=== PATIENT | female | born 1990 | race African-American/Black ===

== ENCOUNTER 2017-06-11 08:39 | Emergency (ER) | payer SELFPAY, OTHER ==
[2017-06-11 09:30] LABS: INFLUENZA A PATIENT NEGATIVE (NEGATIVE); INFLUENZA B PATIENT NEGATIVE (NEGATIVE); OBC FLU VALID
[2017-06-11] MEDS: ALBUTEROL SULFATE 2.5 MG/3 ML NEBU. NEB ×2 (09:49)
[2017-06-11 11:48] LABS: NEGATIVE OBC STREP NEG; POSITIVE OBC STREP POS
== END 2017-06-11 11:11 | disposition home or self-care (01) ==
LOC: ER 08:39
DX: R05 Cough (principal); J02.9 Acute pharyngitis, unspecified; J34.89 Other specified disorders of nose and nasal sinuses
CPT/HCPCS: 87070; 87804; 87804-59; 87880; 94640; 99284; J7613

== ENCOUNTER 2017-08-16 18:32 | Emergency (ER) | payer SELFPAY ==
[2017-08-16 19:42] LABS: NEG OBC UR NEG; POS OBC UR POS; U PREG PATIENT NEGATIVE (NEG)
[2017-08-18 14:23] LABS: CHLAMYDIA PROBE Negative (Negative); GC PROBE Negative (Negative)
== END 2017-08-16 21:40 | disposition home or self-care (01) ==
LOC: ER 21:40
DX: N76.0 Acute vaginitis (principal); B96.89 Other specified bacterial agents as the cause of diseases classified elsewhere; Z87.440 Personal history of urinary (tract) infections
CPT/HCPCS: 81025; 84703; 87491; 87591; 99284; Q0111

== ENCOUNTER 2018-01-22 21:13 | Emergency (ER) | payer SELFPAY ==
[~2018-01-22] VITALS: Ht 167.6 cm; Wt 91.2 kg
[~2018-01-22 21:13] MED LIST: ALBU2.5V5 NEB; CEPH500T PO; METR500T PO; METR500T8 PO; MUPI22OI2 TP; PRED50TA PO; TRAM50TA PO
[2018-01-22 21:55] LABS: BASO % 1 % (0-3); EOS # 0.1 x10^3/uL (0.0-0.7); EOS % 1 % (0-3); HEMATOCRIT 44.6 % (36.0-47.0); HEMOGLOBIN 15.2 g/dL (12.0-15.5); LYMPH # 2.5 x10^3/uL (1.0-4.8); LYMPH % 34 % (24-48); MEAN CORPUSCULAR HEMOGLOBIN 29 pg (25-35); MEAN CORPUSCULAR HGB CONC 34 g/dL (31-37); MEAN CORPUSCULAR VOLUME 85 fL (79-100); MONO # 0.5 x10^3/uL (0.0-1.1); MONO % 7 % (0-9); NEUT # 4.3 x10^3uL (1.8-7.7); NEUT % 58 % (31-73); PLATELET COUNT 249 x10^3/uL (140-400); RED BLOOD COUNT 5.26 x10^6/uL (3.50-5.40); RED CELL DISTRIBUTION WIDTH 14.5 % (11.5-14.5); WHITE BLOOD COUNT 7.3 x10^3/uL (4.0-11.0)
[2018-01-22] MEDS ORDERED: IV NORMAL SALINE 1000ML BAG 1,000 ML IV ONE (22:00)
[2018-01-22] MEDS ORDERED: MULTIVIT INFUSN,ADULT 4,VIT K 10 ML, THIAMINE INJ 100 MG, FOLIC ACID INJ 1 MG in IV NOR... IV ONE (22:15)
[2018-01-22 22:23] LABS: ALBUMIN 4.2 g/dL (3.4-5.0); ALBUMIN/GLOBULIN RATIO 1.2 (1.0-1.7); CALCIUM 9.8 mg/dL (8.5-10.1); CREATININE 0.9 mg/dL (0.6-1.0); GFR 89.6; MAGNESIUM 2.3 mg/dL (1.8-2.4); POTASSIUM 3.5 mmol/L (3.5-5.1); TOTAL BILIRUBIN 0.5 mg/dL (0.2-1.0); TOTAL PROTEIN 7.7 g/dL (6.4-8.2)
[2018-01-22 23:17] LABS: BILIRUBIN,URINE NEGATIVE (NEG); CLARITY,URINE CLEAR; COLOR,URINE YELLOW; NITRITE,URINE NEGATIVE (NEG); PROTEIN,URINE NEGATIVE (NEG-TRACE); UROBILINOGEN,URINE 0.2 mg/dL (0.2 mg/dL)
[2018-01-22 23:22] LABS: BARBITURATES NEG (NEG); BENZODIAZEPINES NEG (NEG); CANNABINOIDS NEG (NEG); COCAINE NEG (NEG); METHADONE NEG (NEG); OPIATES NEG (NEG); PHENCYCLIDINE NEG (NEG)
[2018-01-22 23:23] LABS: AMPHETAMINE/METHAMPHETAMINE NEG (NEG)
[2018-01-22 23:27] LABS: SQUAMOUS EPITHELIAL CELL,UR MOD /LPF
[2018-01-22 23:28] LABS: RBC,URINE 0 /HPF (0-2)
[2018-01-22 23:32] LABS: BACTERIA,URINE FEW /HPF (0-FEW)
--- NOTE | 2018-01-22 23:47 | RAD ---
CT scan of the head without contrast 01/22/2018 Clinical History: Fall with head injury. Technique: Unenhanced, contiguous, 5 mm axial sections were obtained through the head. One or more of the following individualized dose reduction techniques were utilized for this study: 1. Automated exposure control. 2. Adjustment of the mA and/or kV according to patient size. 3. Use of iterative reconstruction technique. Findings: Comparison study is dated 07/18/2009. The ventricles and sulci are within normal limits in size and configuration. No focal area of abnormal attenuation is seen involving the brain parenchyma. No extra-axial fluid collection is seen. No skull fracture is seen. Impression: Negative study. Electronically signed by: Santiago Dillard MD (01/22/2018 11:43 PM) [facility]
--- NOTE | 2018-01-23 01:04 | PHYS DOC ---
Past Medical History Past Medical History: Depression, Hypertension, UTI, Other Additional Past Medical Histor: ABCESS IN GUMS Past Surgical History: Other Additional Past Surgical Histo: GUM SX Alcohol Use: Occasionally Drug Use: None Adult General Chief Complaint Chief Complaint: SYNCOPE HPI HPI Patient is a 27 year old [f__sex] who presents with [] Review of Systems Review of Systems Constitutional: Denies fever or chills [] Eyes: Denies change in visual acuity, redness, or eye pain [] HENT: Denies nasal congestion or sore throat [] Respiratory: Denies cough or shortness of breath [] Cardiovascular: No additional information not addressed in HPI [] GI: Denies abdominal pain, nausea, vomiting, bloody stools or diarrhea [] : Denies dysuria or hematuria [] Musculoskeletal: Denies back pain or joint pain [] Integument: Denies rash or skin lesions [] Neurologic: Denies headache, focal weakness or sensory changes [] Endocrine: Denies polyuria or polydipsia [] All other systems were reviewed and found to be within normal limits, except as documented in this note. Current Medications Current Medications Current Medications Medications (Trade) Dose Ordered Sig/Joni Start Time Stop Time Status Last Admin Dose Admin Multivitamins 10 ml/Thiamine HCl 100 mg/Folic Acid 1 mg/Sodium Chloride 1,011.2 ml @ 1,000.088 mls/hr 1X ONCE 01/22/18 22:15 01/22/18 23:15 DC 01/22/18 22:33 1,000.088 MLS/HR Sodium Chloride 1,000 ml @ 1,000 mls/hr 1X ONCE 01/22/18 22:00 01/22/18 22:00 DC Allergies Allergies Allergies Coded Allergies Type Severity Reaction Last Updated Verified No Known Drug Allergies 08/06/13 No Physical Exam Physical Exam Constitutional: Well developed, well nourished, no acute distress, non-toxic appearance. [] HENT: Normocephalic, atraumatic, bilateral external ears normal, oropharynx moist, no oral exudates, nose normal. [] Eyes: PERRLA, EOMI, conjunctiva normal, no discharge. [] Neck: Normal range of motion, no tenderness, supple, no stridor. [] Cardiovascular:Heart rate regular rhythm, no murmur [] Lungs & Thorax: Bilateral breath sounds clear to auscultation [] Abdomen: Bowel sounds normal, soft, no tenderness, no masses, no pulsatile masses. [] Skin: Warm, dry, no erythema, no rash. [] Back: No tenderness, no CVA tenderness. [] Extremities: No tenderness, no cyanosis, no clubbing, ROM intact, no edema. [] Neurologic: Alert and oriented X 3, normal motor function, normal sensory function, no focal deficits noted. [] Psychologic: Affect normal, judgement normal, mood normal. [] Current Patient Data Vital Signs Vital Signs Date Time Temp Pulse Resp B/P (MAP) Pulse Ox O2 Delivery O2 Flow Rate FiO2 01/22/18 22:30 86 20 176/85 (115) 99 Room Air 01/22/18 21:15 97.9 97.9 Lab Values Laboratory Tests Test 01/22/18 21:25 01/22/18 23:00 01/22/18 23:08 White Blood Count 7.3 x10^3/uL (4.0-11.0) Red Blood Count 5.26 x10^6/uL (3.50-5.40) Hemoglobin 15.2 g/dL (12.0-15.5) Hematocrit 44.6 % (36.0-47.0) Mean Corpuscular Volume 85 fL (79-100) Mean Corpuscular Hemoglobin 29 pg (25-35) Mean Corpuscular Hemoglobin Concent 34 g/dL (31-37) Red Cell Distribution Width 14.5 % (11.5-14.5) Platelet Count 249 x10^3/uL (140-400) Neutrophils (%) (Auto) 58 % (31-73) Lymphocytes (%) (Auto) 34 % (24-48) Monocytes (%) (Auto) 7 % (0-9) Eosinophils (%) (Auto) 1 % (0-3) Basophils (%) (Auto) 1 % (0-3) Neutrophils # (Auto) 4.3 x10^3uL (1.8-7.7) Lymphocytes # (Auto) 2.5 x10^3/uL (1.0-4.8) Monocytes # (Auto) 0.5 x10^3/uL (0.0-1.1) Eosinophils # (Auto) 0.1 x10^3/uL (0.0-0.7) Basophils # (Auto) 0.0 x10^3/uL (0.0-0.2) Sodium Level 138 mmol/L (136-145) Potassium Level 3.5 mmol/L (3.5-5.1) Chloride Level 98 mmol/L (98-107) Carbon Dioxide Level 31 mmol/L (21-32) Anion Gap 9 (6-14) Blood Urea Nitrogen 18 mg/dL (7-20) Creatinine 0.9 mg/dL (0.6-1.0) Estimated GFR (Cockcroft-Gault) 89.6 BUN/Creatinine Ratio 20 (6-20) Glucose Level 114 mg/dL (70-99) H Calcium Level 9.8 mg/dL (8.5-10.1) Magnesium Level 2.3 mg/dL (1.8-2.4) Total Bilirubin 0.5 mg/dL (0.2-1.0) Aspartate Amino Transferase (AST) 33 U/L (15-37) Alanine Aminotransferase (ALT) 34 U/L (14-59) Alkaline Phosphatase 105 U/L (46-116) Creatine Kinase 604 U/L (26-192) H Troponin I Quantitative < 0.017 ng/mL (0.000-0.055) Total Protein 7.7 g/dL (6.4-8.2) Albumin 4.2 g/dL (3.4-5.0) Albumin/Globulin Ratio 1.2 (1.0-1.7) Ethyl Alcohol Level < 10 mg/dL (0-10) Urine Collection Type Unknown Urine Color Yellow Urine Clarity Clear Urine pH 7.0 Urine Specific [place] 1.020 Urine Protein Negative mg/dL (NEG-TRACE) Urine Glucose (UA) Negative mg/dL (NEG) Urine Ketones (Stick) Negative mg/dL (NEG) Urine Blood Negative (NEG) Urine Nitrite Negative (NEG) Urine Bilirubin Negative (NEG) Urine Urobilinogen Dipstick 0.2 mg/dL (0.2 mg/dL) Urine Leukocyte Esterase Trace (NEG) Urine RBC 0 /HPF (0-2) Urine WBC 1-4 /HPF (0-4) Urine Squamous Epithelial Cells Mod /LPF Urine Bacteria Few /HPF (0-FEW) Urine Mucus Mod /LPF Urine Opiates Screen Neg (NEG) Urine Methadone Screen Neg (NEG) Urine Barbiturates Neg (NEG) Urine Phencyclidine Screen Neg (NEG) Urine Amphetamine/Methamphetamine Neg (NEG) Urine Benzodiazepines Screen Neg (NEG) Urine Cocaine Screen Neg (NEG) Urine Cannabinoids Screen Neg (NEG) Urine Ethyl Alcohol Neg (NEG) POC Urine HCG, Qualitative Hcg negative (Negative) Laboratory Tests 01/22/18 21:25 Laboratory Tests 01/22/18 21:25 Microbiology 01/22/18 Wet Prep - Final, Complete EKG EKG @ 2128 NSR at 79bpm, nonspecific V4-V6, NO ST elevation Radiology/Procedures Radiology/Procedures PROCEDURE: CT HEAD WO CONTRAST CT scan of the head without contrast 01/22/2018 Clinical History: Fall with head injury. Technique: Unenhanced, contiguous, 5 mm axial sections were obtained through the head. One or more of the following individualized dose reduction techniques were utilized for this study: 1. Automated exposure control. 2. Adjustment of the mA and/or kV according to patient size. 3. Use of iterative reconstruction technique. Findings: Comparison study is dated 07/18/2009. The ventricles and sulci are within normal limits in size and configuration. No focal area of abnormal attenuation is seen involving the brain parenchyma. No extra-axial fluid collection is seen. No skull fracture is seen. Impression: Negative study. Electronically signed by: Santiago Dillard MD (01/22/2018 11:43 PM) [facility] CXR: 2 view (preliminary interpretation by ED physician): No acute process Course & Med Decision Making Course & Med Decision Making Pertinent Labs and Imaging studies reviewed. (See chart for details) [] Dragon Disclaimer Dragon Disclaimer This electronic medical record was generated, in whole or in part, using a voice recognition dictation system. Departure Departure Impression: Primary Impression: Syncope Additional Impression: Bacterial vaginosis Disposition: HOME, SELF-CARE Condition: IMPROVED Referrals: NO PCP (PCP) Patient Instructions: Bacterial Vaginosis, [id number], Syncope, [id number]-[id number] Scripts Metronidazole (FLAGYL) 500 Mg Tablet 500 MG PO BID for 7 Days, #14 TAB Prov: TYSON CROWELL DO 01/23/18 Problem Qualifiers Primary Impression: Syncope Syncope type: unspecified Qualified Codes: R55 - Syncope and collapse TYSON CROWELL DO Jan 23, 2018 01:04
[2018-01-23] MEDS ORDERED: METR500T PO (02:28)
[2018-01-23] MEDS ORDERED: metroNIDAZOLE 500 MG TABLET PO ONE (02:30)
[2018-01-23 03:00] VITALS: BP 163/107
--- NOTE | 2018-01-23 06:18 | EKG ---
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
--- NOTE | 2018-01-23 08:03 | RAD ---
Chest, 2 views, 01/22/2018: HISTORY: Cough The heart size is normal. No pulmonary infiltrate is seen. There is no evidence of pleural fluid. IMPRESSION: No acute cardiopulmonary abnormality is detected. Electronically signed by: Jay Colon MD (01/23/2018 8:00 AM) [facility]
== END 2018-01-23 03:08 | disposition home or self-care (01) ==
LOC: ER 21:13
DX: N76.0 Acute vaginitis (principal); B96.89 Other specified bacterial agents as the cause of diseases classified elsewhere; R55 Syncope and collapse; F32.9 Major depressive disorder, single episode, unspecified; I10 Essential (primary) hypertension; Z87.440 Personal history of urinary (tract) infections
CPT/HCPCS: 36415; 70450; 71046; 80053; 80307; 81001; 81025; 82550; 83735; 84484; 85025; 87086; 93005; 96365; 99285; G0480; J7030; Q0111; G0479

== ENCOUNTER 2018-04-16 19:22 | Emergency (ER) | payer BC ==
[~2018-04-16] VITALS: Ht 167.6 cm; Wt 98.4 kg
[~2018-04-16 19:22] MED LIST changes: +METR-84 PO; -METR500T8 PO
[2018-04-16 19:30] VITALS: BP 159/98
[2018-04-16 21:00] LABS: BILIRUBIN,URINE NEGATIVE (NEG); CLARITY,URINE CLEAR; COLOR,URINE YELLOW; NITRITE,URINE NEGATIVE (NEG); PROTEIN,URINE NEGATIVE (NEG-TRACE); UROBILINOGEN,URINE 0.2 mg/dL (0.2 mg/dL)
[2018-04-16 21:07] LABS: BACTERIA,URINE MANY /HPF (0-FEW); RBC,URINE OCC /HPF (0-2); SQUAMOUS EPITHELIAL CELL,UR MANY /LPF
[2018-04-16 21:08] LABS: BASO # 0.1 x10^3/uL (0.0-0.2); BASO % 1 % (0-3); EOS # 0.1 x10^3/uL (0.0-0.7); EOS % 1 % (0-3); HEMATOCRIT 44.1 % (36.0-47.0); HEMOGLOBIN 15.5 g/dL (12.0-15.5); LYMPH # 2.3 x10^3/uL (1.0-4.8); LYMPH % 33 % (24-48); MEAN CORPUSCULAR HEMOGLOBIN 30 pg (25-35); MEAN CORPUSCULAR HGB CONC 35 g/dL (31-37); MEAN CORPUSCULAR VOLUME 84 fL (79-100); MONO # 0.5 x10^3/uL (0.0-1.1); MONO % 7 % (0-9); NEUT # 4.1 x10^3uL (1.8-7.7); NEUT % 58 % (31-73); PLATELET COUNT 256 x10^3/uL (140-400); RED BLOOD COUNT 5.25 x10^6/uL (3.50-5.40); RED CELL DISTRIBUTION WIDTH 14.3 % (11.5-14.5)
[2018-04-16 21:16] LABS: CALCIUM 9.5 mg/dL (8.5-10.1); CREATININE 1.2 mg/dL (0.6-1.0); GFR 64.3; POTASSIUM 3.8 mmol/L (3.5-5.1)
--- NOTE | 2018-04-16 21:42 | RAD ---
CHEST PA LATERAL History: CHEST PAIN Comparison: January 22, 2018 Findings: 2 views of the chest are submitted. There is no infiltrate, pneumothorax, or effusion. The cardiac silhouette is within normal limits in size. The trachea is in the midline. No acute osseous abnormality is identified. Impression: 1. There is no evidence of acute cardiopulmonary disease. Electronically signed by: Junior Espinoza MD (04/16/2018 9:38 PM) [facility]
[2018-04-16] MEDS ORDERED: IV NORMAL SALINE 1000ML BAG 1,000 ML IV ONE (21:45)
--- NOTE | 2018-04-16 22:16 | PHYS DOC ---
Past Medical History Past Medical History: Depression, Hypertension, UTI, Other Additional Past Medical Histor: ABCESS IN GUMS Past Surgical History: Other Additional Past Surgical Histo: GUM SX Alcohol Use: Heavy Drug Use: None Adult General Chief Complaint Chief Complaint: HYPERTENSION HPI HPI Patient is a 27 year old female who presents with except [place]the airport and states that she is on lisinopril for hypertension but last 2 days she has taken her dose she is to take the 2-3 days before that she did not take her medication. Patient states that she's been feeling like she is hypertensive. Her blood pressure ED is 150/91. She also states that she's been dizzy, nauseated, blurred vision, midsternal chest pain and is feeling overall lightheaded today. Patient states she has ate 6 hours prior to arrival daily. She is alert and oriented. Ambulatory with steady gait. Review of Systems Review of Systems Constitutional: Denies fever or chills [] Eyes: Blurred vision today. Denies change in visual acuity, redness, or eye pain [] HENT: Denies nasal congestion or sore throat [] Respiratory: Denies cough or shortness of breath [] Cardiovascular: Mid chest pain GI: Denies abdominal pain, nausea, vomiting, bloody stools or diarrhea [] : Denies dysuria or hematuria [] Musculoskeletal: Denies back pain or joint pain [] Integument: Denies rash or skin lesions [] Neurologic: Dizziness, lightheadedness, headache, denies focal weakness or sensory changes [] All other systems were reviewed and found to be within normal limits, except as documented in this note. Current Medications Current Medications Current Medications Medications (Trade) Dose Ordered Sig/[facility] Start Time Stop Time Status Last Admin Dose Admin Sodium Chloride 1,000 ml @ 1,000 mls/hr 1X ONCE 04/16/18 21:45 04/16/18 22:44 04/16/18 21:45 1,000 MLS/HR Allergies Allergies Allergies Coded Allergies Type Severity Reaction Last Updated Verified No Known Drug Allergies 08/06/13 No Physical Exam Physical Exam Constitutional: Well developed, well nourished, no acute distress, non-toxic appearance. [] HENT: Normocephalic, atraumatic, bilateral external ears normal, oropharynx moist, no oral exudates, nose normal. [] Eyes: PERRLA, EOMI, conjunctiva normal, no discharge. [] Neck: Normal range of motion, no tenderness, supple, no stridor. [] Cardiovascular:Heart rate regular rhythm, no murmur [] Lungs & Thorax: Bilateral breath sounds clear to auscultation [] Abdomen: Bowel sounds normal, soft, no tenderness, no masses, no pulsatile masses. [] Skin: Warm, dry, no erythema, no rash. [] Back: No tenderness, no CVA tenderness. [] Extremities: No tenderness, no cyanosis, no clubbing, ROM intact, bilateral pedal edema 1-2+ nonpitting. [] Neurologic: Alert and oriented X 3, normal motor function, normal sensory function, no focal deficits noted. [] Psychologic: Affect normal, judgement normal, mood normal. [] Current Patient Data Vital Signs Vital Signs Date Time Temp Pulse Resp B/P (MAP) Pulse Ox O2 Delivery O2 Flow Rate FiO2 04/16/18 19:30 159/98 (118) 04/16/18 19:30 97.9 90 18 98 97.9 Lab Values Laboratory Tests Test 04/16/18 20:40 04/16/18 20:48 04/16/18 20:54 Urine Collection Type Unknown Urine Color Yellow Urine Clarity Clear Urine pH 6.0 Urine Specific [place] 1.020 Urine Protein Negative mg/dL (NEG-TRACE) Urine Glucose (UA) Negative mg/dL (NEG) Urine Ketones (Stick) Negative mg/dL (NEG) Urine Blood Negative (NEG) Urine Nitrite Negative (NEG) Urine Bilirubin Negative (NEG) Urine Urobilinogen Dipstick 0.2 mg/dL (0.2 mg/dL) Urine Leukocyte Esterase Small (NEG) Urine RBC Occ /HPF (0-2) Urine WBC 5-10 /HPF (0-4) Urine Squamous Epithelial Cells Many /LPF Urine Bacteria Many /HPF (0-FEW) Urine Mucus Mod /LPF White Blood Count 7.0 x10^3/uL (4.0-11.0) Red Blood Count 5.25 x10^6/uL (3.50-5.40) Hemoglobin 15.5 g/dL (12.0-15.5) Hematocrit 44.1 % (36.0-47.0) Mean Corpuscular Volume 84 fL (79-100) Mean Corpuscular Hemoglobin 30 pg (25-35) Mean Corpuscular Hemoglobin Concent 35 g/dL (31-37) Red Cell Distribution Width 14.3 % (11.5-14.5) Platelet Count 256 x10^3/uL (140-400) Neutrophils (%) (Auto) 58 % (31-73) Lymphocytes (%) (Auto) 33 % (24-48) Monocytes (%) (Auto) 7 % (0-9) Eosinophils (%) (Auto) 1 % (0-3) Basophils (%) (Auto) 1 % (0-3) Neutrophils # (Auto) 4.1 x10^3uL (1.8-7.7) Lymphocytes # (Auto) 2.3 x10^3/uL (1.0-4.8) Monocytes # (Auto) 0.5 x10^3/uL (0.0-1.1) Eosinophils # (Auto) 0.1 x10^3/uL (0.0-0.7) Basophils # (Auto) 0.1 x10^3/uL (0.0-0.2) Sodium Level 137 mmol/L (136-145) Potassium Level 3.8 mmol/L (3.5-5.1) Chloride Level 99 mmol/L (98-107) Carbon Dioxide Level 29 mmol/L (21-32) Anion Gap 9 (6-14) Blood Urea Nitrogen 22 mg/dL (7-20) H Creatinine 1.2 mg/dL (0.6-1.0) H Estimated GFR (Cockcroft-Gault) 64.3 Glucose Level 94 mg/dL (70-99) Calcium Level 9.5 mg/dL (8.5-10.1) POC Urine HCG, Qualitative Hcg negative (Negative) Laboratory Tests 04/16/18 20:48 Laboratory Tests 04/16/18 20:48 EKG EKG Sinus rhythm and no STEMI Interpretation Time: 2049 in read by Radiology/Procedures Radiology/Procedures Chest x-ray Impressions: [facility] [address] [place], [place] [id number] IMAGING REPORT Signed PATIENT: BECKY MORENO ACCOUNT: [id number] : 1990 LOCATION: ER AGE: 27 SEX: F EXAM STATUS: REG ER ORD. PHYSICIAN: BILL ORELLANA APRN REASON: chest pain PROCEDURE: CHEST PA & LATERAL CHEST PA LATERAL History: CHEST PAIN Comparison: January 22, 2018 Findings: 2 views of the chest are submitted. There is no infiltrate, pneumothorax, or effusion. The cardiac silhouette is within normal limits in size. The trachea is in the midline. No acute osseous abnormality is identified. Impression: 1. There is no evidence of acute cardiopulmonary disease. Electronically signed by: Junior George MD (04/16/2018 9:38 PM) [facility] DICTATED and SIGNED BY: JUNIOR GEORGE MD DATE: 04/16/182137 Course & Med Decision Making Course & Med Decision Making Patient is a 27 year old female who presents with except [place]the airport and states that she is on lisinopril for hypertension but last 2 days she has taken her dose she is to take the 2-3 days before that she did not take her medication. Patient states that she's been feeling like she is hypertensive. Her blood pressure ED is 150/91. She also states that she's been dizzy, nauseated, blurred vision, midsternal chest pain and is feeling overall lightheaded today. Patient states she has ate 6 hours prior to arrival daily. She is alert and oriented. Ambulatory with steady gait. Speaks in full clear sentences. Neurologically intact. PERRLA. Patient has no focal weaknesses. She does however have bilateral ankle and pedal edema 1-2+. The chest pain is nonpleuritic. PERC negative and Heart score is 1. Pulses are present. Abdomen is soft and nontender. Patient doesn't denies any vomiting or diarrhea or fever or shortness of air. Lungs are clear to auscultation. Chest x-ray shows no acute findings. Heart rate is regular without murmur. EKG shows sinus rhythm and no STEMI. Bilateral tympanic membranes are pearly white. Patient denies any recent illness or head congestion. Patient denies the room spinning or any dizziness this time but she does state that she feels slightly lightheaded. Patient did drive herself here today. Blood work is unremarkable. Blood glucose is within normal limits. Patient does state that before she began taking her lisinopril and her blood pressure was in the 170s over 100s and now it has dropped down to the 150s over 90s which is a change for her. We spoke about how a big change in blood pressure can cause some dizziness lightheadedness. I have told patient that she needs to continue taking her blood pressure medications and do not skip a dose. She is to call her doctor in the morning and be seen for follow-up. Patient is stable and in no distress. Dragon Disclaimer Dragon Disclaimer This electronic medical record was generated, in whole or in part, using a voice recognition dictation system. Departure Departure Impression: Primary Impression: Dizziness Additional Impressions: Chest pain Hypertension Disposition: HOME, SELF-CARE Condition: STABLE Referrals: NO PCP (PCP) Patient Instructions: Chest Pain (Nonspecific), Dizziness, Hypertension Additional Instructions: Cardiac doctor in the morning to make an appointment. Do not skip any doses of your blood pressure medication and take it as prescribed. If you pass out, chest pain increases with radiation to left arm, or dizziness worsens please come back to the ER. Problem Qualifiers Additional Impressions: Chest pain Chest pain type: unspecified Qualified Codes: R07.9 - Chest pain, unspecified Hypertension Hypertension type: unspecified Qualified Codes: I10 - Essential (primary) hypertension BILL ORELLANA CAGE CASHIER Apr 16, 2018 22:16
--- NOTE | 2018-04-17 07:56 | EKG ---
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
== END 2018-04-16 22:45 | disposition home or self-care (01) ==
LOC: ER 19:22
DX: R42 Dizziness and giddiness (principal); I10 Essential (primary) hypertension; R51 Headache; R11.0 Nausea; R07.89 Other chest pain; F32.9 Major depressive disorder, single episode, unspecified; F10.20 Alcohol dependence, uncomplicated; Y90.9 Presence of alcohol in blood, level not specified; H53.8 Other visual disturbances
CPT/HCPCS: 36415; 71046; 80048; 81001; 81025; 84484; 85025; 87086; 93005; 96360; 99284; J7030

== ENCOUNTER 2018-08-31 21:59 | Emergency (ER) | payer BC ==
[~2018-08-31] VITALS: Ht 167.6 cm; Wt 98.4 kg
[~2018-08-31 21:59] MED LIST changes: +METR-34 PO; -METR-84 PO
[2018-08-31 22:45] LABS: BASO # 0.1 x10^3/uL (0.0-0.2); BASO % 1 % (0-3); EOS # 0.1 x10^3/uL (0.0-0.7); EOS % 1 % (0-3); HEMATOCRIT 38.6 % (36.0-47.0); HEMOGLOBIN 13.4 g/dL (12.0-15.5); LYMPH # 2.2 x10^3/uL (1.0-4.8); LYMPH % 42 % (24-48); MEAN CORPUSCULAR HEMOGLOBIN 30 pg (25-35); MEAN CORPUSCULAR HGB CONC 35 g/dL (31-37); MEAN CORPUSCULAR VOLUME 86 fL (79-100); MONO # 0.3 x10^3/uL (0.0-1.1); MONO % 7 % (0-9); NEUT # 2.6 x10^3uL (1.8-7.7); NEUT % 49 % (31-73); PLATELET COUNT 234 x10^3/uL (140-400); RED BLOOD COUNT 4.52 x10^6/uL (3.50-5.40); RED CELL DISTRIBUTION WIDTH 13.5 % (11.5-14.5); WHITE BLOOD COUNT 5.3 x10^3/uL (4.0-11.0)
[2018-08-31 22:46] LABS: BILIRUBIN,URINE NEGATIVE (NEG); CLARITY,URINE CLOUDY; COLOR,URINE YELLOW; NITRITE,URINE NEGATIVE (NEG); PROTEIN,URINE NEGATIVE (NEG-TRACE); UROBILINOGEN,URINE 0.2 mg/dL (0.2 mg/dL)
[2018-08-31 22:51] LABS: RBC,URINE OCC /HPF (0-2)
[2018-08-31 22:52] LABS: BACTERIA,URINE MODERATE /HPF (0-FEW); SQUAMOUS EPITHELIAL CELL,UR MANY /LPF
[2018-08-31 22:56] LABS: CALCIUM 8.7 mg/dL (8.5-10.1); CREATININE 1.2 mg/dL (0.6-1.0); GFR 63.8; POTASSIUM 3.9 mmol/L (3.5-5.1)
--- NOTE | 2018-08-31 22:58 | PHYS DOC ---
Past Medical History Past Medical History: Depression, Hypertension, UTI, Other Additional Past Medical Histor: ABCESS IN GUMS (STU ROWELL APRN) Past Surgical History: Other Additional Past Surgical Histo: GUM SX (STU ROWELL APRN) Alcohol Use: Heavy Drug Use: None (STU ROWELL APRN) Smoking: Cigarettes (TYSON CROWELL DO) Adult General Chief Complaint Chief Complaint: HYPERTENSION HPI HPI 28-year-old female presents to ER for complaints of elevated blood pressure and left-sided chest pain. Patient states she has had chest pain since 5 AM this morning. Patient states she was able to work from 7:00 this morning until 6 PM and chest pain was intermittent throughout the day. She denies any shortness of air. She reports she does feel fatigued and has some dizziness denies headache, vision changes, or tinnitus. Patient states she is on lisinopril/HCTZ but she forgot to take her medications today. She reports her doctor had up her dose 2 weeks ago as her blood pressure remains elevated. Patient denies any family CAD hx. Pt is a daily smoker. (STU ROWELL APRN) Review of Systems Review of Systems Constitutional: Denies fever or chills. Reports generalized fatigue Eyes: Denies change in visual acuity, redness, or eye pain [] HENT: Denies nasal congestion or sore throat [] Respiratory: Denies cough or shortness of breath [] Cardiovascular: Reports lt side CP intermittently thru day- denies during exam GI: Denies abdominal pain, nausea, vomiting, bloody stools or diarrhea [] : Denies dysuria or hematuria [] Musculoskeletal: Denies back/neck pain or joint pain [] Integument: Denies rash or skin lesions [] Neurologic: Denies headache, focal weakness or sensory changes [] All other systems were reviewed and found to be within normal limits, except as documented in this note. (STU ROWELL APRN) Allergies Allergies Allergies Coded Allergies Type Severity Reaction Last Updated Verified No Known Drug Allergies 08/06/13 No (TYSON CROWELL DO) Physical Exam Physical Exam Constitutional: Well developed, well nourished, no acute distress, non-toxic appearance. [] HENT: Normocephalic, atraumatic, bilateral ears normal, mucous membranes pink/dry- bilat tonsillar swelling/erythema, no oral exudates, nose normal. [] Eyes: Pupils equal, conjunctiva normal, no discharge. [] Neck: Normal range of motion, no tenderness, supple, no stridor. [] Cardiovascular: Heart rate regular rhythm, no murmur [] Lungs & Thorax: Bilateral breath sounds clear to auscultation. Resp. equal/nonlabored Abdomen: Bowel sounds normal, soft, no tenderness, no masses, no pulsatile masses. [] Skin: Warm, dry, no erythema, no rash. [] Back: No tenderness, no CVA tenderness. [] Extremities: No tenderness, no cyanosis, no clubbing, ROM intact, no edema. [] Neurologic: Alert and oriented X 3, normal motor function, normal sensory function, no focal deficits noted. [] Psychologic: Affect normal, judgement normal, mood normal. [] (REFFITT,STU Zendejas APRN) Current Patient Data Vital Signs Vital Signs Date Time Temp Pulse Resp B/P (MAP) Pulse Ox O2 Delivery O2 Flow Rate FiO2 09/01/18 00:19 78 97 08/31/18 22:00 98.1 17 186/95 (125) Room Air 98.1 (CROWELL,TYSON R DO) Lab Values Laboratory Tests Test 08/31/18 22:10 08/31/18 22:35 08/31/18 22:40 Urine Collection Type Unknown Urine Color Yellow Urine Clarity Cloudy Urine pH 7.0 Urine Specific [place] 1.015 Urine Protein Negative mg/dL (NEG-TRACE) Urine Glucose (UA) Negative mg/dL (NEG) Urine Ketones (Stick) Negative mg/dL (NEG) Urine Blood Large (NEG) Urine Nitrite Negative (NEG) Urine Bilirubin Negative (NEG) Urine Urobilinogen Dipstick 0.2 mg/dL (0.2 mg/dL) Urine Leukocyte Esterase Moderate (NEG) Urine RBC Occ /HPF (0-2) Urine WBC 5-10 /HPF (0-4) Urine Squamous Epithelial Cells Many /LPF Urine Bacteria Moderate /HPF (0-FEW) Urine Mucus Mod /LPF White Blood Count 5.3 x10^3/uL (4.0-11.0) Red Blood Count 4.52 x10^6/uL (3.50-5.40) Hemoglobin 13.4 g/dL (12.0-15.5) Hematocrit 38.6 % (36.0-47.0) Mean Corpuscular Volume 86 fL (79-100) Mean Corpuscular Hemoglobin 30 pg (25-35) Mean Corpuscular Hemoglobin Concent 35 g/dL (31-37) Red Cell Distribution Width 13.5 % (11.5-14.5) Platelet Count 234 x10^3/uL (140-400) Neutrophils (%) (Auto) 49 % (31-73) Lymphocytes (%) (Auto) 42 % (24-48) Monocytes (%) (Auto) 7 % (0-9) Eosinophils (%) (Auto) 1 % (0-3) Basophils (%) (Auto) 1 % (0-3) Neutrophils # (Auto) 2.6 x10^3uL (1.8-7.7) Lymphocytes # (Auto) 2.2 x10^3/uL (1.0-4.8) Monocytes # (Auto) 0.3 x10^3/uL (0.0-1.1) Eosinophils # (Auto) 0.1 x10^3/uL (0.0-0.7) Basophils # (Auto) 0.1 x10^3/uL (0.0-0.2) Sodium Level 141 mmol/L (136-145) Potassium Level 3.9 mmol/L (3.5-5.1) Chloride Level 103 mmol/L (98-107) Carbon Dioxide Level 28 mmol/L (21-32) Anion Gap 10 (6-14) Blood Urea Nitrogen 16 mg/dL (7-20) Creatinine 1.2 mg/dL (0.6-1.0) H Estimated GFR (Cockcroft-Gault) 63.8 BUN/Creatinine Ratio 13 (6-20) Glucose Level 126 mg/dL (70-99) H Calcium Level 8.7 mg/dL (8.5-10.1) Magnesium Level 2.0 mg/dL (1.8-2.4) Total Bilirubin 0.3 mg/dL (0.2-1.0) Aspartate Amino Transferase (AST) 40 U/L (15-37) H Alanine Aminotransferase (ALT) 48 U/L (14-59) Alkaline Phosphatase 101 U/L (46-116) Troponin I Quantitative < 0.017 ng/mL (0.000-0.055) Total Protein 6.6 g/dL (6.4-8.2) Albumin 3.8 g/dL (3.4-5.0) Albumin/Globulin Ratio 1.4 (1.0-1.7) POC Urine HCG, Qualitative Hcg negative (Negative) Laboratory Tests 08/31/18 22:35 Laboratory Tests 08/31/18 22:35 Microbiology 08/31/18 Urine Culture - Final, Complete 08/31/18 Urine Culture Result 1 (ROSEMARY) - Final, Complete (TYSON CROWELL DO) EKG EKG EKG obtained 08/31/18 at [address] Crowell Sinus rhythm Rate 81 No STEMI (STU ROWELL APRN) Radiology/Procedures Radiology/Procedures PROCEDURE: CHEST PA & LATERAL CHEST PA LATERAL CLINICAL INDICATION: LEFT SIDED CHEST PAIN, DIZZINESS X1 DAY. HX OF HBP COMPARISON: 04/16/2018 FINDINGS: Heart is normal in size. Lungs are clear. No pneumothorax or pleural effusion. Visualized bony thorax is within normal limits. IMPRESSION: No acute pulmonary process. Electronically signed by: Genaro Fulton DO (09/01/2018 12:01 AM) [facility] DICTATED and SIGNED BY: GENARO FULTON DO DATE: 09/01/18 0001 (STU ROWELL APRN) Course & Med Decision Making Course & Med Decision Making Pertinent Labs and Imaging studies reviewed. (See chart for details) 2355: Patient was evaluated in the ER for complaints of elevated blood pressure and was feeling fatigued with intermittent dizziness. She reported she hadn't taken her blood pressure medication. Patient was given IV fluids and had labs, EKG, and chest x-ray obtained as pt reported CP since 0500- EKG with no acute ST elevation/STEMI and troponin was neg. Patient's UA with UTI- this was discussed with pt along with plans for Rx for Keflex. At this time is 177/84 heart rate 79. On reevaluation patient reports her symptoms have improved and she is comfortable with home discharge as her symptoms have improved. She remains alert and oriented 3. Discussion had with patient regarding medication compliance and not missing doses of her hypertension medicine. Education provided on s&s to return to ER for and discharge instructions were discussed. Pt to f/u with her PCP for re-eval of BP and recheck of UA after antibiotic completion. Pt was in no distress and remained nontoxic in appearance. (STU ROWELL APRN) Dragon Disclaimer Dragon Disclaimer This electronic medical record was generated, in whole or in part, using a voice recognition dictation system. (STU ROWELL APRN) Departure Departure Impression: Primary Impression: Chest pain Additional Impressions: Hypertension UTI (urinary tract infection) Disposition: HOME, SELF-CARE Condition: STABLE Referrals: ARNULFO DRAKE MD (PCP) Patient Instructions: Chest Pain (Nonspecific), Hypertension, Managing Your High Blood Pressure, Urinary Tract Infection Additional Instructions: Drink plenty of fluids. Take your blood pressure medications as prescribed daily- don't miss doses. Follow-up with your primary doctor for blood pressure re-evaluation. Scripts Cephalexin (KEFLEX) 500 Mg Capsule 1 CAP PO BID, #14 CAP 0 Refills Prov: STU ROWELL APRN 09/01/18 Attending Signature Attending Signature I have reviewed the PA/CANE PILER's note and plan of care. I was available for consult ation as needed during the patient's visit in the emergency department. I agree with the clinical impression, plan, and disposition. (TYSON CROWELL DO) PERC Rule for PE PERC Rule for PE Response (Comments) Value Age > 50: No 0 HR > 100: No 0 Sa02 on room air <95%: No 0 Unilateral leg swelling: No 0 Hemoptysis: No 0 Recent surgery or trauma: No 0 Prior PE or DVT: No 0 Hormone use: No 0 Total 0 The HEART Score for CP Pts HEART Score for Chest Pain: HEART Score for Chest Pain Response (Comments) Value History Slighlty/Non-Suspicious 0 ECG Normal 0 Age < 45 0 Risk Factors 1 or 2 Risk Factors 1 Troponin < Normal Limit 0 Total 1 Risk Factors: Risk Factors: DM, Current or recent (<one month) smoker, HTN, HLP, family hi story of CAD, obesity. Risk Scores: Score 0 - 3: 2.5% MACE over next 6 weeks - Discharge Home Score 4 - 6: 20.3% MACE over next 6 weeks - Admit for Clinical Observation Score 7 - 10: 72.7% MACE over next 6 weeks - Early Invasive Strategies (TYSON CROWELL DO) Problem Qualifiers STU ROWELL APRN Aug 31, 2018 22:58 TYSON CROWELL DO September 13, 2018 12:09
[2018-08-31 23:01] LABS: ALBUMIN 3.8 g/dL (3.4-5.0); ALBUMIN/GLOBULIN RATIO 1.4 (1.0-1.7); TOTAL BILIRUBIN 0.3 mg/dL (0.2-1.0); TOTAL PROTEIN 6.6 g/dL (6.4-8.2)
--- NOTE | 2018-09-01 00:04 | RAD ---
CHEST PA LATERAL CLINICAL INDICATION: LEFT SIDED CHEST PAIN, DIZZINESS X1 DAY. HX OF HBP COMPARISON: 04/16/2018 FINDINGS: Heart is normal in size. Lungs are clear. No pneumothorax or pleural effusion. Visualized bony thorax is within normal limits. IMPRESSION: No acute pulmonary process. Electronically signed by: Genaro Fulton DO (09/01/2018 12:01 AM) [facility]
[2018-09-01 00:19] VITALS: BP 171/87
[2018-09-01] MEDS ORDERED: CEPH-264 PO (00:20)
--- NOTE | 2018-09-01 07:35 | EKG ---
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 Electronically Signed On 09-04-2018 9:28:34 CDT by Joby Mccormick
== END 2018-09-01 00:49 | disposition home or self-care (01) ==
LOC: ER 21:59
DX: I10 Essential (primary) hypertension (principal); N39.0 Urinary tract infection, site not specified; R07.89 Other chest pain; R51 Headache; R42 Dizziness and giddiness; R53.83 Other fatigue; F32.9 Major depressive disorder, single episode, unspecified; F10.20 Alcohol dependence, uncomplicated; Y90.9 Presence of alcohol in blood, level not specified
CPT/HCPCS: 36415; 71046; 80053; 81001; 81025; 83735; 84484; 85025; 87086; 93005; 99285-25

== ENCOUNTER 2019-01-13 17:51 | Emergency (ER) | payer BC ==
[~2019-01-13] VITALS: Ht 167.6 cm; Wt 101.6 kg
[~2019-01-13 17:51] MED LIST changes: +CEPH-264 PO
[2019-01-13 18:13] VITALS: BP 201/117
[2019-01-13 18:42] LABS: BILIRUBIN,URINE NEGATIVE (NEG); CLARITY,URINE CLEAR; COLOR,URINE YELLOW; NITRITE,URINE NEGATIVE (NEG); PH,URINE 6.5; PROTEIN,URINE NEGATIVE (NEG-TRACE); UROBILINOGEN,URINE 0.2 mg/dL (0.2 mg/dL)
[2019-01-13 18:50] LABS: BACTERIA,URINE FEW /HPF (0-FEW); RBC,URINE 0 /HPF (0-2); SQUAMOUS EPITHELIAL CELL,UR MANY /LPF; WBC,URINE OCC /HPF (0-4)
[2019-01-13] MEDS ORDERED: ACET1TAB29 PO (19:37)
[2019-01-13] MEDS ORDERED: METR500T PO (19:37)
--- NOTE | 2019-01-13 19:38 | PHYS DOC ---
Past Medical History Past Medical History: Depression, Hypertension, UTI, Other Additional Past Medical Histor: ABCESS IN GUMS Past Surgical History: Other Additional Past Surgical Histo: GUM SX Alcohol Use: Occasionally Drug Use: None Adult General Chief Complaint Chief Complaint: MULTIPLE COMPLAINTS HPI HPI Patient is a 28 year old female with a history of hypertension and noncompliant with her medications who presents today complaining of high blood pressure. Patient states she has lisinopril 20 mg that she is supposed to take every day, she states she does not remember the last time she took this medication but she believes it was weeks ago. She states her blood pressure is running high. Denies any headache, denies any chest pain. She is also complaining of bacterial vaginosis, she states she has an odorous vaginal discharge for a couple days and would like to be treated for BV. She is also complaining of a cough for 2 days with chills and body aches. Denies any fever. Review of Systems Review of Systems Constitutional: Reports chills and body aches, denies fever Eyes: Denies change in visual acuity, redness, or eye pain [] HENT: Denies nasal congestion or sore throat [] Respiratory: Reports cough, denies shortness of breath [] Cardiovascular: No additional information not addressed in HPI [] GI: Denies abdominal pain, nausea, vomiting, bloody stools or diarrhea [] : Reports vaginal discharge and concern for bacterial vaginosis. Denies dysuria or hematuria [] Musculoskeletal: Denies back pain or joint pain [] Integument: Denies rash or skin lesions [] Neurologic: Denies headache, focal weakness or sensory changes [] All other systems were reviewed and found to be within normal limits, except as documented in this note. Allergies Allergies Allergies Coded Allergies Type Severity Reaction Last Updated Verified No Known Drug Allergies 08/06/13 No Physical Exam Physical Exam Constitutional: Well developed, well nourished, no acute distress, non-toxic appearance. [] HENT: Normocephalic, atraumatic, bilateral external ears normal, oropharynx moist, no oral exudates, nose normal. [] Eyes: PERRLA, EOMI, conjunctiva normal, no discharge. [] Neck: Normal range of motion, no tenderness, supple, no stridor. [] Cardiovascular:Heart rate regular rhythm, no murmur [] Lungs & Thorax: Bilateral breath sounds clear to auscultation [] Abdomen: Bowel sounds normal, soft, no tenderness, no masses, no pulsatile masses. [] Skin: Warm, dry, no erythema, no rash. [] Back: No tenderness, no CVA tenderness. [] Extremities: No tenderness, no cyanosis, no clubbing, ROM intact, no edema. [] Neurologic: Alert and oriented X 3, normal motor function, normal sensory function, no focal deficits noted. [] Psychologic: Affect normal, judgement normal, mood normal. [] Current Patient Data Vital Signs Vital Signs Date Time Temp Pulse Resp B/P (MAP) Pulse Ox O2 Delivery O2 Flow Rate FiO2 01/13/19 18:13 98.6 81 16 201/117 (145) 16 Room Air 98.6 Lab Values Laboratory Tests Test 01/13/19 18:25 Urine Collection Type Unknown Urine Color Yellow Urine Clarity Clear Urine pH 6.5 Urine Specific [place] 1.020 Urine Protein Negative mg/dL (NEG-TRACE) Urine Glucose (UA) Negative mg/dL (NEG) Urine Ketones (Stick) Negative mg/dL (NEG) Urine Blood Negative (NEG) Urine Nitrite Negative (NEG) Urine Bilirubin Negative (NEG) Urine Urobilinogen Dipstick 0.2 mg/dL (0.2 mg/dL) Urine Leukocyte Esterase Trace (NEG) Urine RBC 0 /HPF (0-2) Urine WBC Occ /HPF (0-4) Urine Squamous Epithelial Cells Many /LPF Urine Bacteria Few /HPF (0-FEW) Urine Mucus Marked /LPF EKG EKG [] Radiology/Procedures Radiology/Procedures [] Course & Med Decision Making Course & Med Decision Making Pertinent Labs and Imaging studies reviewed. (See chart for details) This is a 28-year-old female patient who presents to the ED today with multiple complaints including high blood pressure, she is on lisinopril and does not take the medication. She actually had the pills with her in the emergency room. Blood pressure was 201/117, asked patient to take her lisinopril. She also was complaining of cough for 2 days and chills. Her lungs are clear. [id number] Coricidin recommended. She is also complaining of bacterial vaginosis, prescription for Flagyl given. She states she has an appointment with her PCP next week. Dragon Disclaimer Vivienne Disclaimer This electronic medical record was generated, in whole or in part, using a voice recognition dictation system. Departure Departure Impression: Primary Impression: Bacterial vaginosis Additional Impressions: Cough Hypertension, uncontrolled Disposition: 01 HOME, SELF-CARE Condition: STABLE Referrals: ARNULFO DRAKE MD (PCP) Follow-up as soon as you can Patient Instructions: Bacterial Vaginosis, [id number], Cough, Adult, [id number], Hypertension Additional Instructions: You were evaluated in the emergency room, we highly recommend you take your blood pressure medications. Ensure you complete the Flagyl for bacterial vaginosis. Take the prescribed medication for cough, you can take Tylenol or Motrin for fever, chills and body aches. Follow-up with your doctor as soon as you can. Scripts Acetaminophen/Chlorpheniramine (CORICIDIN HBP COLD & FLU TAB) 1 Each Tablet 1 EACH PO BID, #20 TAB Prov: DAMIAN REAGAN APRN 01/13/19 Metronidazole (FLAGYL) 500 Mg Tablet 1 TAB PO BID, #14 TAB Prov: DAMIAN REAGAN APRN 01/13/19 Problem Qualifiers DAMIAN REAGAN APRN Jan 13, 2019 19:37
== END 2019-01-13 19:45 | disposition home or self-care (01) ==
LOC: ER 17:51
DX: N76.0 Acute vaginitis (principal); B96.89 Other specified bacterial agents as the cause of diseases classified elsewhere; I10 Essential (primary) hypertension; R05 Cough; Z87.440 Personal history of urinary (tract) infections
CPT/HCPCS: 81001; 99283